=== PATIENT | female | born 1955 | race Caucasian/White ===

== ENCOUNTER 2021-01-04 09:56 | Observation (INO) ==
[~2021-01-04 09:56] MED LIST: Povidone-Iodine 45 ML, Sodium Chloride IRRigation 1,000 ML IR ONE; TOTAL JOINT MIXTURE (100ML) INTRAART ONE
[2021-01-04] MEDS ORDERED: *HR* Midazolam HCl 2 MG/2 ML VIAL ONE (10:11)
[2021-01-04] MEDS ORDERED: *HR* FentaNYL (PF) 100 MCG/2 ML VIAL ONE (10:12)
[2021-01-04] MEDS ORDERED: Lidocaine -MPF 2% 2 ML VIAL ONE (10:12)
[2021-01-04] MEDS ORDERED: CeFAZolin Syr 2,000MG/20 ML 2,000 MG/20 ML SYRINGE IVPB ONE (10:25)
[2021-01-04] MEDS ORDERED: Ringers Solution, Lactated 1,000 ML IVC SCH (10:30)
[2021-01-04] MEDS ORDERED: Famotidine 20 MG/2 ML VIAL IVP ONE (10:52)
[2021-01-04] MEDS ORDERED: Acetaminophen IV 1,000 MG/100 ML BAG IVPB ONE (10:52)
[2021-01-04] MEDS ORDERED: Vancomycin 1,000 MG VIAL ONE ×2 (11:02→11:44)
[2021-01-04] MEDS ORDERED: Ropivacaine/PF 0.5% 30 ML VIAL ONE (11:03)
[2021-01-04] MEDS ORDERED: ROPIVACAINE/PF/NS 0.25% 1 EACH SYRINGE INTRAART ONE (11:03)
[2021-01-04] MEDS ORDERED: TOTAL JOINT MIXTURE (100ML) INTRAART ONE (11:15)
[2021-01-04] MEDS ORDERED: Povidone-Iodine 45 ML, Sodium Chloride IRRigation 1,000 ML IR ONE (11:15)
[2021-01-04] MEDS ORDERED: Tranexamic Acid 1,000 MG/10 ML VIAL ONE ×2 (12:23→12:37)
[2021-01-04] MEDS ORDERED: EPHEDrine 50 MG/ML VIAL ONE (12:37)
[2021-01-04] MEDS ORDERED: *HR* Propofol 200 MG/20 ML VIAL IVP ONE (13:58)
[2021-01-04] MEDS ORDERED: Naloxone 0.4 MG/ML INJ IVP PRN (15:37)
[2021-01-04] MEDS ORDERED: *HR* Promethazine 25 MG/ML VIAL IM PRN (15:37)
[2021-01-04] MEDS ORDERED: Sennosides 8.6 MG TABLET PO PRN (15:37)
[2021-01-04] MEDS ORDERED: MOM Conc 10 ML UD.LIQ PO PRN (15:37)
[2021-01-04] MEDS: *HR* OxyCODONE Immed Rel 5 MG TABLET PO PRN ×2 (18:07→21:24)
[2021-01-04] MEDS: Ascorbic Acid 500 MG TABLET PO SCH (18:07)
[2021-01-04] MEDS: CeFAZolin 2 GM/120 ML BAG IVPB SCH ×2 (18:08→22:36)
[2021-01-05 01:07] LABS: Basophils % 0.3 %; Eosinophils % 0.2 %; Hematocrit 36.7 % (35.3-44.9); Hemoglobin 11.7 g/dL (11.5-15.4); Immature Granulocytes % 0.3 % (0-4); Lymphocytes # 0.6 K/mcL (0.6-4.6); Lymphocytes % 5.5 %; Mean Corpuscular HGB Conc 31.9 g/dL (31.6-35.5); Mean Corpuscular Hemoglobin 29.1 pg (28.0-33.3); Mean Corpuscular Volume 91.3 fL (83.0-100.0); Mean Platelet Volume 10.4 fL (9.4-12.4); Monocytes # 0.5 K/mcL (0.0-1.3); Monocytes % 4.7 %; Neutrophils # 10.2 K/mcL (1.6-8.9); Platelet Count 222 K/mcL (140-400); Red Blood Count 4.02 M/mcL (3.82-4.97); Red Cell Distribution Width 13.7 % (11.5-14.5); White Blood Count 11.5 K/mcL (4.3-11.1)
[2021-01-05 01:27] LABS: BUN/Creatinine Ratio 14 (6-26); Blood Urea Nitrogen 10 mg/dL (8-23); Calcium 8.8 mg/dL (8.6-10.3); Carbon Dioxide 23 mEq/L (23-29); Chloride 106 mEq/L (98-107); Glucose 112 mg/dL (70-105); Osmolality,Calculated 286 (280-300); Potassium 3.6 mEq/L (3.5-5.1); Sodium 138 mEq/L (136-145); eGFR For African Americans > 60 (> 60); eGFR For Non-African Americans > 60 (> 60)
[2021-01-05] MEDS: *HR* OxyCODONE Immed Rel 5 MG TABLET PO PRN ×5 (01:37→19:51)
[2021-01-05] MEDS: Multivit/Ca/Min/Fe/FA 1 TAB TABLET PO SCH (09:00)
[2021-01-05] MEDS: Ascorbic Acid 500 MG TABLET PO SCH ×2 (09:00→16:41)
[2021-01-05] MEDS: Metoprolol XL (24 HR) Succ 50 MG TAB.ER.24H PO SCH (09:00)
[2021-01-05] MEDS: Ringers Solution, Lactated 1,000 ML IVC SCH (10:46)
[2021-01-05] MEDS: Ondansetron 4 MG/2 ML VIAL IVP PRN ×2 (11:00→19:41)
[2021-01-05] MEDS: Aspirin Enteric Coated 81 MG Tablet PO SCH (15:08)
[2021-01-05] MEDS: Ketorolac 30 MG/ML VIAL IVP PRN (16:40)
[2021-01-06] MEDS: Ketorolac 30 MG/ML VIAL IVP PRN ×3 (00:37→14:34)
[2021-01-06 01:51] LABS: Basophils % 0.4 %; Eosinophils # 0.2 K/mcL (0.0-0.6); Eosinophils % 1.6 %; Hematocrit 36.7 % (35.3-44.9); Hemoglobin 11.4 g/dL (11.5-15.4); Immature Granulocytes % 0.4 % (0-4); Lymphocytes # 1.4 K/mcL (0.6-4.6); Lymphocytes % 14.7 %; Mean Corpuscular HGB Conc 31.1 g/dL (31.6-35.5); Mean Corpuscular Hemoglobin 28.3 pg (28.0-33.3); Mean Corpuscular Volume 91.1 fL (83.0-100.0); Mean Platelet Volume 10.7 fL (9.4-12.4); Monocytes # 1.1 K/mcL (0.0-1.3); Monocytes % 11.5 %; Platelet Count 222 K/mcL (140-400); Red Blood Count 4.03 M/mcL (3.82-4.97); Red Cell Distribution Width 14.4 % (11.5-14.5); Segmented Neutrophils % 71.4 %; White Blood Count 9.8 K/mcL (4.3-11.1)
[2021-01-06 02:07] LABS: BUN/Creatinine Ratio 18 (6-26); Blood Urea Nitrogen 13 mg/dL (8-23); Carbon Dioxide 25 mEq/L (23-29); Chloride 102 mEq/L (98-107); Glucose 109 mg/dL (70-105); Osmolality,Calculated 283 (280-300); Potassium 3.7 mEq/L (3.5-5.1); Sodium 136 mEq/L (136-145); eGFR For African Americans > 60 (> 60); eGFR For Non-African Americans > 60 (> 60)
[2021-01-06] MEDS: Metoprolol XL (24 HR) Succ 50 MG TAB.ER.24H PO SCH (07:31)
[2021-01-06] MEDS: *HR* OxyCODONE Immed Rel 5 MG TABLET PO PRN ×2 (07:39→13:16)
[2021-01-06] MEDS: Multivit/Ca/Min/Fe/FA 1 TAB TABLET PO SCH (09:28)
[2021-01-06] MEDS: Ascorbic Acid 500 MG TABLET PO SCH (09:28)
[2021-01-06] MEDS: Aspirin Enteric Coated 81 MG Tablet PO SCH (09:28)
[2021-01-06 10:41] VITALS: BP 124/76
== END 2021-01-06 16:29 | disposition home health service (06) ==
LOC: SAMDAY 09:56 → 3NENU 09:56
PROVIDERS: ADMIT Orthopaedic Surgery; ATTEND Orthopaedic Surgery